=== PATIENT | male | born 1990 | race African-American/Black ===

== ENCOUNTER 2016-03-23 17:22 | Emergency (ER) | payer OTHER ==
[2016-03-23 17:30] VITALS: BP 133/86; PULSE 81; TEMP 99.1; BMI 23.3
[2016-03-23] MEDS ORDERED: SULFAMETHOXAZOLE/TRIMETHOPRIM 800MG/160MG D.S. TABLET PO ONE (18:10)
[2016-03-23] MEDS ORDERED: OXYCODONE/APAP 5/325MG COMBO TABLET PO ONE (18:10)
[2016-03-23] MEDS ORDERED: NAPROXEN 500 MG TABLET (FP) PO ONE (18:10)
[2016-03-23] MEDS ORDERED: CEPHALEXIN MONOHYDRATE 500 MG CAPSULE (UD) PO ONE (18:10)
[2016-03-23] MEDS ORDERED: NAPROXEN 500 MG TABLET (FP) ONE (18:16)
[2016-03-23] MEDS ORDERED: CEPHALEXIN MONOHYDRATE 250 MG CAPSULE (FP) ONE (18:18)
[2016-03-23] MEDS ORDERED: SULFAMETHOXAZOLE/TRIMETHOPRIM 800MG/160MG D.S. TABLET ONE (18:18)
[2016-03-23] MEDS ORDERED: OXYCODONE/APAP 5/325MG COMBO TABLET ONE (18:18)
--- NOTE | 2016-03-23 18:19 | PDOC ---
History of Present Illness - General History Source: Patient Exam Limitations: No Limitations <Hernandez Navarrete - Last Filed: 03/23/16 18:19> - General History Source: Patient - History of Present Illness Initial Comments: 03/23/16 18:22 The patient is a 26 year old male with no significant past medical history who presents to the Emergency Department with complaints of swelling and redness of left forearm s/p possible spider bite 2 days ago. He denies fever, chills, nausea, vomiting, diarrhea, headache, dizziness. <Yuliya Blevins - Last Filed: 03/23/16 18:29> - General Chief Complaint: Bite Stated Complaint: BITE Time Seen by Provider: 03/23/16 18:05 Past History - Past Medical History Asthma: Yes Suicide Attempt (Hx): No - Immunization History Td Vaccination: No TDAP Vaccination: No Immunization Up to Date: No - Psycho/Social/Smoking Cessation Hx Anxiety: No Suicidal Ideation: No Smoking Status: Yes Smoking History: Current every day smoker Years of Tobacco Use: 1 Have you smoked in the past 12 months: Yes Number of Cigarettes Smoked Daily: 20 Information on smoking cessation initiated: No 'Breaking Loose' booklet given: 01/01/15 Hx Alcohol Use: Yes (SOCIAL) Drug/Substance Use Hx: No Substance Use Type: None Hx Substance Use Treatment: No <Hernandez Navarrete - Last Filed: 03/23/16 18:19> <Yuliya Blevins - Last Filed: 03/23/16 18:29> - Past Medical History Allergies/Adverse Reactions: Allergies Allergy/AdvReac Type Severity Reaction Status Date / Time No Known Allergies Allergy Verified 03/23/16 17:30 Home Medications: Ambulatory Orders Cephalexin [Keflex] 500 mg PO Q6H #28 capsule 03/23/16 Naproxen [Naprosyn -] 500 mg PO BID PRN #20 tablet 03/23/16 Oxycodone HCl/Acetaminophen [Percocet 5-325 mg Tablet] 1 tab PO Q6H PRN #15 tablet MDD 4 03/23/16 Sulfamethoxazole/Trimethoprim [Bactrim Ds -] 1 tab PO BID #14 tablet 03/23/16 Review of Systems - Review of Systems Able to Perform ROS?: Yes Comments:: 03/23/16 18:23 GENERAL/CONSTITUTIONAL: No fever or chills. No weakness. HEAD, EYES, EARS, NOSE AND THROAT: No change in vision. No ear pain or discharge. No sore throat. CARDIOVASCULAR: No chest pain or shortness of breath. RESPIRATORY: No cough, wheezing, or hemoptysis. GASTROINTESTINAL: No nausea, vomiting, diarrhea or constipation. GENITOURINARY: No dysuria, frequency, or change in urination. MUSCULOSKELETAL:Yes: left forearm swelling, redness, pain No neck or back pain. SKIN: No rash NEUROLOGIC: No headache, vertigo, loss of consciousness, or change in strength/ sensation. ENDOCRINE: No increased thirst. No abnormal weight change. HEMATOLOGIC/LYMPHATIC: No anemia, easy bleeding, or history of blood clots. ALLERGIC/IMMUNOLOGIC: No hives or skin allergy. All Other Systems: Reviewed and Negative <Yuliya Blevins - Last Filed: 03/23/16 18:29> *Physical Exam - Vital Signs Last Vital Signs Temp Pulse Resp BP Pulse Ox 99.1 F 81 20 133/86 100 03/23/16 17:27 03/23/16 17:27 03/23/16 17:27 03/23/16 17:27 03/23/16 17:27 <Hernandez Navarrete - Last Filed: 03/23/16 18:19> - Vital Signs Last Vital Signs Temp Pulse Resp BP Pulse Ox 99.1 F 81 20 133/86 100 03/23/16 17:27 03/23/16 17:27 03/23/16 17:27 03/23/16 17:27 03/23/16 17:27 - Physical Exam Comments: 03/23/16 18:24 GENERAL: Awake, alert, and fully oriented, in no acute distress HEAD: No signs of trauma EYES: PERRLA, EOMI, sclera anicteric, conjunctiva clear ENT: Auricles normal inspection, hearing grossly normal, nares patent, oropharynx clear without exudates. Moist mucosa NECK: Normal ROM, supple, no lymphadenopathy, JVD, or masses LUNGS: Breath sounds equal, clear to auscultation bilaterally. No wheezes, and no crackles HEART: Regular rate and rhythm, normal S1 and S2, no murmurs, rubs or gallops ABDOMEN: Soft, nontender, normoactive bowel sounds. No guarding, no rebound. No masses EXTREMITIES:+8*4 cm erythema left distal forearm central 2*2 with induration and tender to palpation. Small bite site. No fluctuance appreciated. Full ROM of left wrist. No clubbing or cyanosis. No cords. NEUROLOGICAL: Cranial nerves II through XII grossly intact. Normal speech, normal gait SKIN: Warm, Dry, normal turgor, no rashes. <Yuliya Blevins - Last Filed: 03/23/16 18:29> ED Treatment Course - Medications Given in the ED: ED Medications Discontinued Medications Generic Name Dose Route Start Last Admin Trade Name Freq PRN Reason Stop Dose Admin Cephalexin HCl 500 mg 03/23/16 18:10 03/23/16 18:21 Keflex - PO 03/23/16 18:11 500 mg ONCE ONE Administration Naproxen 500 mg 03/23/16 18:10 03/23/16 18:21 Naprosyn - PO 03/23/16 18:11 500 mg ONCE ONE Administration Oxycodone/Acetaminophen 1 combo 03/23/16 18:10 03/23/16 18:21 Percocet 5/325 - PO 03/23/16 18:11 1 combo ONCE ONE Administration Trimethoprim/Sulfamethoxazole 1 each 03/23/16 18:10 03/23/16 18:21 Bactrim Ds - PO 03/23/16 18:11 1 each ONCE ONE Administration <Yuliya Blevins - Last Filed: 03/23/16 18:29> Medical Decision Making - Medical Decision Making 03/23/16 18:19 A portion of this note was documented by scribe services under my direction. I have reviewed the details of the note, within reason, and agree with the documentation with the following case summary and management plan written by me. Patient treated in the ED. Nursing notes are reviewed and incorporated into the medical decision-making. Vital signs reviewed. Peripheral IV access obtained by the nurse, laboratory studies are drawn and sent, reviewed and interpreted by myself. Vital Signs Temp Pulse Resp BP Pulse Ox 99.1 F 81 20 133/86 100 03/23/16 17:27 03/23/16 17:27 03/23/16 17:27 03/23/16 17:27 03/23/16 17:27 26-year-old male with no past medical history presents with cellulitis of the left distal forearm. Patient reports that he believes that he has been bitten by a spider 2 days ago started developing redness and erythema and induration. No fevers. There is no evidence of an abscess. Patient has full range of motion of the left wrist. I have no suspicion of joint involvement. We'll give Bactrim and Keflex. I instructed the patient to return to the ER in 2 days for wound check. Return precautions given including severe pain, high fevers, development of an abscess. Patient verbalizes understanding agrees with plan. I discussed the physical exam findings, ancillary test results and final diagnoses with the patient. I answered all of the patient's questions. The patient was satisfied with the care received and felt comfortable with the discharge plan and treatment plan. The patient will call their primary care physician within 24 hours to arrange follow-up and will return to the Emergency Department with any new, persistant or worsening symptoms. <Hernandez Navarrete - Last Filed: 03/23/16 18:19> *DC/Admit/Observation/Transfer - Discharge Dispostion Admit: No <Hernandez Navarrete - Last Filed: 03/23/16 18:19> - Attestations Scribe Attestion: 03/23/16 18:29 Documentation prepared by Yuliya Blevins, acting as medical van driver for Hernandez Navarrete MD. <Yuliya Blevins - Last Filed: 03/23/16 18:29> Diagnosis at time of Disposition: Cellulitis Qualifiers: Site of cellulitis: extremity Site of cellulitis of extremity: upper extremity Laterality: left Qualified Code(s): L03.114 - Cellulitis of left upper limb - Discharge Dispostion Disposition: HOME Condition at time of disposition: Stable - Prescriptions Prescriptions: Sulfamethoxazole/Trimethoprim [Bactrim Ds -] 1 tab PO BID #14 tablet Cephalexin [Keflex] 500 mg PO Q6H #28 capsule Naproxen [Naprosyn -] 500 mg PO BID PRN #20 tablet PRN Reason: Pain Oxycodone HCl/Acetaminophen [Percocet 5-325 mg Tablet] 1 tab PO Q6H PRN #15 tablet MDD 4 PRN Reason: Pain Level 6-10 - Patient Instructions Printed Discharge Instructions: DI for Cellulitis -- Adult Additional Instructions: At this time, there is NO abscess to drain at this time. Take keflex and bactrim as prescribed. It is very important that you complete its course. Take 500 mg naproxen every 12 hours as needed for pain. Take a tablet of percocet every 6 hours as needed for severe pain control. Please return to the ER in 2 days for wound/skin check.
== END 2016-03-23 18:32 | disposition home or self-care (01) ==
LOC: JERFT 17:22 → JER 17:22
DX: L03.114 Cellulitis of left upper limb (principal); S50.862A Insect bite (nonvenomous) of left forearm, initial encounter; W57.XXXA Bitten or stung by nonvenomous insect and other nonvenomous arthropods, initial encounter; Y93.89 Activity, other specified; Y92.89 Other specified places as the place of occurrence of the external cause
CPT/HCPCS: 99282-25

== ENCOUNTER 2016-03-25 20:51 | Emergency (ER) | payer OTHER ==
[2016-03-25 21:04] VITALS: BP 106/68; PULSE 99; TEMP 98.6; BMI 23.3
--- NOTE | 2016-03-25 21:28 | PDOC ---
History of Present Illness - General Chief Complaint: Revisit,Wound Recheck Stated Complaint: REVISIT Time Seen by Provider: 03/25/16 21:28 History Source: Patient Past History - Past Medical History Allergies/Adverse Reactions: Allergies Allergy/AdvReac Type Severity Reaction Status Date / Time No Known Allergies Allergy Verified 03/25/16 21:02 Home Medications: Ambulatory Orders Cephalexin [Keflex] 500 mg PO Q6H #28 capsule 03/23/16 Naproxen [Naprosyn -] 500 mg PO BID PRN #20 tablet 03/23/16 Oxycodone HCl/Acetaminophen [Percocet 5-325 mg Tablet] 1 tab PO Q6H PRN #15 tablet MDD 4 03/23/16 Sulfamethoxazole/Trimethoprim [Bactrim Ds -] 1 tab PO BID #14 tablet 03/23/16 Asthma: Yes Suicide Attempt (Hx): No - Immunization History Td Vaccination: No TDAP Vaccination: No Immunization Up to Date: No - Psycho/Social/Smoking Cessation Hx Anxiety: No Suicidal Ideation: No Smoking Status: Yes Smoking History: Current every day smoker Years of Tobacco Use: 1 Have you smoked in the past 12 months: Yes Number of Cigarettes Smoked Daily: 20 Information on smoking cessation initiated: Yes 'Breaking Loose' booklet given: 03/25/16 Hx Alcohol Use: No Drug/Substance Use Hx: No Substance Use Type: None Hx Substance Use Treatment: No *Physical Exam - Vital Signs Last Vital Signs Temp Pulse Resp BP Pulse Ox 98.6 F 99 H 18 106/68 99 03/25/16 21:02 03/25/16 21:02 03/25/16 21:02 03/25/16 21:02 03/25/16 21:02
[2016-03-25] MEDS ORDERED: OXYCODONE/APAP 5/325MG COMBO TABLET PO ONE (22:13)
[2016-03-25] MEDS ORDERED: LIDOCAINE HCL 2% (50ML VIAL) INF ONE (22:13)
[2016-03-25] MEDS ORDERED: IBUPROFEN 400 MG TABLET (FP) PO ONE ×2 (22:13→22:33)
[2016-03-25] MEDS ORDERED: OXYCODONE/APAP 5/325MG COMBO TABLET ONE (22:33)
[2016-03-25] MEDS ORDERED: LIDOCAINE HCL 2% (20ML MULTI-DOSE VIAL) NR ONE (22:33)
--- NOTE | 2016-03-25 23:07 | PDOC ---
Suture Removal/Wound Check HPI - History of Present Illness Chief Complaint: Revisit,Wound Recheck Stated Complaint: REVISIT Time Seen by Provider: 03/25/16 21:28 History Source: Yes: Patient Exam Limitations: Yes: No Limitations Treated at: [facility] Date of Last ED visit: 03/23/16 - Previous ED Treatment Type of procedure performed on last visit: Yes: Other (Given Abx for abscess of left wrist.) Tetanus Immunization: Yes: Up to Date Antibiotics Prescribed: Yes (Keflex and Bactrim) - Onset of Previous Treatment Timing/Duration/Severity of Onset: reports: Getting worse Comment:: 03/25/16 23:03 26yo Male patient presents to ED c/o left wrist abscess getting worse. Patient states he was evaluated in this emergency department and prescribed abx and was instructed to return if symptoms worsened. Patient now presents with large abscess to left wrist. Denies fever, cough, or any other complaints at this time. Past History - Travel Traveled outside of the country in the last 30 days: No Close contact w/someone who was outside of country & ill: No - Past Medical History Allergies/Adverse Reactions: Allergies No Known Allergies Allergy (Verified 03/25/16 21:02) Home Medications: Ambulatory Orders Cephalexin [Keflex] 500 mg PO Q6H #28 capsule 03/23/16 Naproxen [Naprosyn -] 500 mg PO BID PRN #20 tablet 03/23/16 Oxycodone HCl/Acetaminophen [Percocet 5-325 mg Tablet] 1 tab PO Q6H PRN #15 tablet MDD 4 03/23/16 Sulfamethoxazole/Trimethoprim [Bactrim DS -] 1 tab PO BID #14 tablet 03/23/16 Hydrocodone/Acetaminophen [Vicodin 5-300 mg Tablet] 1 each PO Q8H PRN #12 tablet MDD 4 tabs 03/25/16 - Immunization History Immunizations Up to Date: No - Social History Smoking History: Yes Smoking Status: Current every day smoker Years of Tobacco Use: 1 Number of Ciarettes Per Day: 20 Alcohol Use: none Drug Use: none Suture Removal/Wound Check PE - Physical Exam Laceration/Wound Check Symptoms: reports: None, Pain, Worsening Comments: 03/25/16 23:05 Worsening symptoms while on ABX. Pain Intensity: 10 Current Severity Level: Severe Maximum Severity Level: Severe Pain Localization: Diffuse (Traveling up elbow.) Location of Laceration/Wound: left: Wrist (Large fluctuant erythema abscess. Non -draining) *Review of Systems - Review of Systems Constitutional: No: Chills, Fever Respiratory: No: Shortness of Breath Cardiac (ROS): No: Chest Pain, Edema ABD/GI: No: Diarrhea, Nausea, Vomiting Musculoskeletal: Yes: Joint Pain Integumentary: Yes: Erythema, Other (Abscess) Neurological: No: Symptoms reported, See HPI, Headache, Numbness, Paresthesia, Pre-Existing Deficit, Seizure, Tingling, Tremors, Weakness, Unsteady Gait, Ataxia, Dizziness, Other All Other Systems: Reviewed and Negative Procedures - Incision and Drainage I&D Site: Left: Other (Wrist.) Betadine cleansed: Yes Anesthesia: 2% Lidocaine Volume(ml): 10 Attempts: 1 Iodinated Packin/2 in Plain Packing: No (Medicated) Complications: none Dressing: Yes (Sterile gauze) Progress: 03/25/16 23:09 Patient tolerated procedure well. ED Treatment Course - Medications Given in the ED: ED Medications Discontinued Medications Generic Name Dose Route Start Last Admin Trade Name Freq PRN Reason Stop Dose Admin Ibuprofen 800 mg 03/25/16 22:13 03/25/16 22:35 Motrin - PO 03/25/16 22:14 800 mg ONCE ONE Administration Oxycodone/Acetaminophen 2 combo 03/25/16 22:13 03/25/16 22:35 Percocet 5/325 - PO 03/25/16 22:14 2 combo ONCE ONE Administration *DC/Admit/Observation/Transfer Diagnosis at time of Disposition: Skin abscess Qualifiers: Site of cutaneous abscess: extremity Site of cutaneous abscess of extremity: upper extremity Laterality: left Qualified Code(s): L02.414 - Cutaneous abscess of left upper limb - Discharge Dispostion Disposition: HOME Condition at time of disposition: Good Admit: No - Prescriptions Prescriptions: Hydrocodone/Acetaminophen [Vicodin 5-300 mg Tablet] 1 each PO Q8H PRN #12 tablet MDD 4 tabs PRN Reason: Severe Pain - Patient Instructions Printed Discharge Instructions: How to Care for a Surgical Wound, DI for Wound Infection Additional Instructions: FOLLOW UP WITH THIS ED IN 2 DAYS FOR FURTHER EVALUATION. DO NOT REMOVE PACKING. DRESSING CHANGES DAILY AND NEEDED. IF PACKING IS REMOVED BY ACCIDENT DO NOT WORRY, JUST RETURN DISCUSSED. TAKE MEDICATIONS PRESCRIBED. VICODIN NEEDED FOR SEVERE PAIN. YOU MAY APPLY COLD COMPRESS EVERY 4 HOURS WHILE AWAKE FOR 10-15 MINS ON AND OFF NEEDED. DO NOT DRIVE, DRINK ALCOHOL, OR OPERATE HEAVY MACHINERY WHILE TAKING VICODIN. Print Language: HAITIAN
== END 2016-03-25 23:23 | disposition home or self-care (01) ==
LOC: JER 20:51
PROC: 0H9EXZZ Drainage of Left Lower Arm Skin, External Approach (ICD-10-PCS; principal; 2016-03-25)
DX: L02.414 Cutaneous abscess of left upper limb (principal); F17.210 Nicotine dependence, cigarettes, uncomplicated
CPT/HCPCS: 10060; 99281-25

== ENCOUNTER 2016-03-27 20:06 | Emergency (ER) | payer OTHER ==
[2016-03-27 20:18] VITALS: BP 153/72; PULSE 99; TEMP 98.9; BMI 23.3
--- NOTE | 2016-03-27 22:25 | PDOC ---
Suture Removal/Wound Check HPI - History of Present Illness Chief Complaint: Revisit,Wound Recheck Stated Complaint: REVISIT Time Seen by Provider: 03/27/16 21:57 History Source: Yes: Patient Exam Limitations: Yes: No Limitations Treated at: [facility] [place] Date of Last ED visit: 03/23/16 - Previous ED Treatment Type of procedure performed on last visit: Yes: Other (Wound assessment) Tetanus Immunization: Yes: Up to Date Antibiotics Prescribed: Yes - Onset of Previous Treatment Timing/Duration/Severity of Onset: reports: Other comment (Read previous visit.) Comment:: 03/27/16 22:21 26yo Male patient presents to ED for wound check/re-evaluation. Patient states wick from previous visit fell out and that it was full of pus. Patient denies fever. Report pain at 6/10. No new complaints at this time. Past History - Travel Traveled outside of the country in the last 30 days: No Close contact w/someone who was outside of country & ill: No - Past Medical History Allergies/Adverse Reactions: Allergies No Known Allergies Allergy (Verified 03/27/16 20:15) Home Medications: Ambulatory Orders Cephalexin [Keflex] 500 mg PO Q6H #28 capsule 03/23/16 Sulfamethoxazole/Trimethoprim [Bactrim DS -] 1 tab PO BID #14 tablet 03/23/16 Tramadol HCl 50 mg PO Q6H PRN #12 tablet MDD 4 tabs 03/27/16 - Immunization History Immunizations Up to Date: No - Social History Smoking History: Yes Smoking Status: Current every day smoker Years of Tobacco Use: 1 Number of Ciarettes Per Day: 20 Alcohol Use: none Drug Use: none Suture Removal/Wound Check PE - Physical Exam Laceration/Wound Check Symptoms: reports: Redness, Improved, Other Comment ( Small amount of drainage noted on gauze that was applied to left wrist.) Current Severity Level: Moderate Maximum Severity Level: None Location of Laceration/Wound: left: Wrist *Review of Systems - Review of Systems Able to Perform ROS?: Yes Constitutional: No: Chills, Fever Respiratory: No: Shortness of Breath Cardiac (ROS): No: Chest Pain ABD/GI: No: Diarrhea, Nausea, Vomiting : No: Dysuria, Hematuria Integumentary: Yes: Erythema, Other (Healing wound that was originally and abscess that has improved.) All Other Systems: Reviewed and Negative Medical Decision Making - Medical Decision Making 03/27/16 22:25 No further treatment done. Assessment of wound: small amount of yellowish drainage and mild erythema noted. Site has improved since previous visit 2 days ago. Mild tenderness on examination. Patient report he still has abx left to complete. *DC/Admit/Observation/Transfer Diagnosis at time of Disposition: Skin abscess Qualifiers: Site of cutaneous abscess: extremity Site of cutaneous abscess of extremity: upper extremity Laterality: left Qualified Code(s): L02.414 - Cutaneous abscess of left upper limb - Discharge Dispostion Disposition: HOME Condition at time of disposition: Good Admit: No - Prescriptions Prescriptions: Tramadol HCl 50 mg PO Q6H PRN #12 tablet MDD 4 tabs PRN Reason: Severe Pain - Patient Instructions Printed Discharge Instructions: DI for Wound Infection Additional Instructions: CONTINUE CURRENT ANTIBIOTIC THERAPY. TAKE MEDICATIONS PRESCRIBED. DO NOT DRIVE, DRINK ALCOHOL, OR OPERATE HEAVY MACHINERY WHILE TAKING TRAMADOL. YOU MAY ALSO USE OVER THE COUNTER MOTRIN OR TYLENOL WITH TRAMADOL. FOLLOW UP WITH YOUR PRIMARY CARE PROVIDER. DRESSING CHANGES DAILY AND NEEDED. Print Language: CROATIAN
== END 2016-03-27 22:39 | disposition home or self-care (01) ==
LOC: JER 20:06 → JERFT 20:06 → JER 22:39
DX: L02.414 Cutaneous abscess of left upper limb (principal)
CPT/HCPCS: 99281-25

== ENCOUNTER 2016-08-14 23:16 | Emergency (ER) | payer OTHER ==
[2016-08-14 23:30] VITALS: BP 150/91; PULSE 98; TEMP 98.1; BMI 22.4
--- NOTE | 2016-08-15 00:37 | PDOC ---
History of Present Illness - General Chief Complaint: Penile Drainage Stated Complaint: EVALUATION Time Seen by Provider: 08/15/16 00:12 History Source: Patient Exam Limitations: No Limitations - History of Present Illness Initial Comments: 08/15/16 01:47 Patient is a 26-year-old male who presents to the ER complaining of atraumatic right testicular pain and whitish penile discharge for the past several days after having unprotected intercourse. Pain is constant, is exacerbated with weightbearing, without fever or chills. Patient denies dysuria/frequency/ urgency. Patient denies previous history of gonorrhea/chlamydia/syphilis/HIV. Patient does not know if his sexual partner is experiencing any symptoms at this time. REVIEW OF SYSTEMS CONSTITUTIONAL: No fever, no chills, no fatigue EYES: No visual changes ENT: No ear pain, no sore throat CARDIOVASCULAR: No chest pain, no palpitations RESPIRATORY: No cough, no SOB GI: No abdominal pain, no nausea, no vomiting, no constipation, no diarrhea GENITOURINARY: No dysuria, no frequency, no hematuria; + penile discharge, right testicular pain, MUSKULOSKELETAL: No backpain, no joint pain, no myalgias SKIN: No rash NEURO: No headache EXAMINATION CONSTITUTIONAL: Well-appearing; well-nourished; in no apparent distress HEAD: Normocephalic; atraumatic EYES: PERRL; EOM intact ENMT: External appears normal; normal oropharynx RESP: Normal chest excursion with respiration; breath sounds clear and equal bilaterally; no wheezes, rhonchi, or rales ABD: Soft, non-distended; non-tender; no palpable organomegaly, no palpable hernias : + Small amount of discharge at penile meatus; right testicle is mildly edematous and mildly tender to palpation; both testicles are normal lie; EXT: Normal ROM in all four extremities; non-tender to palpation; distal pulses intact SKIN: Warm, dry, no rash NEURO: No focal neurological deficiencies. Past History - Past Medical History Allergies/Adverse Reactions: Allergies Allergy/AdvReac Type Severity Reaction Status Date / Time No Known Allergies Allergy Verified 08/14/16 23:30 Home Medications: Ambulatory Orders Cephalexin [Keflex] 500 mg PO Q6H #28 capsule 03/23/16 Sulfamethoxazole/Trimethoprim [Bactrim DS -] 1 tab PO BID #14 tablet 03/23/16 Tramadol HCl 50 mg PO Q6H PRN #12 tablet MDD 4 tabs 03/27/16 Asthma: Yes Suicide Attempt (Hx): No - Immunization History Td Vaccination: No TDAP Vaccination: No Immunization Up to Date: No - Psycho/Social/Smoking Cessation Hx Anxiety: No Suicidal Ideation: No Smoking Status: Yes Smoking History: Current every day smoker Years of Tobacco Use: 1 Have you smoked in the past 12 months: Yes Number of Cigarettes Smoked Daily: 20 Information on smoking cessation initiated: No 'Breaking Loose' booklet given: 03/25/16 Hx Alcohol Use: No Drug/Substance Use Hx: No Substance Use Type: None Hx Substance Use Treatment: No *Physical Exam - Vital Signs Last Vital Signs Temp Pulse Resp BP Pulse Ox 98.1 F 98 H 18 150/91 100 08/14/16 23:27 08/14/16 23:27 08/14/16 23:27 08/14/16 23:27 08/14/16 23:27 Medical Decision Making - Medical Decision Making 08/15/16 01:50 Patient is a healthy 26-year-old male who presents with signs and symptoms of acute urethritis and likely epididymitis. I suspect chlamydia at this time. Will obtain Chlamydia/gonorrhea GenProbe. We'll test patient for HIV and RPR. We 'll administer ceftriaxone and Zithromax. Likely discharge. *DC/Admit/Observation/Transfer Diagnosis at time of Disposition: Urethritis Hydrocele Qualifiers: Hydrocele type: unspecified Qualified Code(s): N43.3 - Hydrocele, unspecified - Discharge Dispostion Disposition: HOME Condition at time of disposition: Stable - Referrals Referrals: Alexandra Reddy MD [Primary Care Provider] - - Patient Instructions Printed Discharge Instructions: DI for Urethritis, DI for Hydrocele-Adult
[2016-08-15] MEDS ORDERED: AZITHROMYCIN 1 GM PACKET PO ONE (00:42)
[2016-08-15] MEDS ORDERED: AZITHROMYCIN 1 GM PACKET ONE (01:14)
[2016-08-15 02:41] LABS: HIV 1 & 2 AB NEGATIVE; HIV 1 AGp24 NEGATIVE
== END 2016-08-15 03:11 | disposition home or self-care (01) ==
LOC: JER 23:16 → SUPCPDRO 23:16 → JER 08-15 03:11
DX: N34.2 Other urethritis (principal); N43.2 Other hydrocele
CPT/HCPCS: 36415; 76870-TC; 86593; 87389; 87491; 87591; 99281-25

== ENCOUNTER 2017-06-11 12:50 | Observation (INO) | payer OTHER ==
[2017-06-11 13:08] VITALS: BMI 23.3
[2017-06-11] MEDS ORDERED: morphine CARPU-JECT 4 MG/1 ML DISP.SYRIN IVPUSH ONE (14:02)
[2017-06-11] MEDS ORDERED: SODIUM CHLORIDE 1,000 ML IV STA (14:02)
[2017-06-11] MEDS ORDERED: MORPHINE SULFATE 10 MG/1 ML *VIAL ONE (14:05)
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
[2017-06-11 14:18] LABS: BASO % 0.3 % (0-2.0); EOS % 0.3 % (0-4.5); HEMATOCRIT 46.3 % (35.4-49); HEMOGLOBIN 15.3 GM/dL (11.7-16.9); LYMPH % 13.2 % (8-40); MCH 31.6 pg (25.7-33.7); MEAN CELL VOLUME 95.8 fl (80-96); MEAN PLT VOLUME 10.2 fl (7.5-11.1); MONO % 6.3 % (3.8-10.2); NEUT % 79.9 % (42.8-82.8); PLATELET COUNT 198 K/MM3 (134-434); RBC 4.83 M/mm3 (4.00-5.60); RDW 14.9 % (11.9-15.9); WHITE BLOOD COUNT 15.1 K/mm3 (4.0-10.0)
[2017-06-11 15:02] LABS: ALBUMIN 4.6 g/dl (3.4-5.0); ANION GAP 16 (8-16); BILIRUBIN,TOTAL 0.9 mg/dL (0.2-1.0); BLOOD UREA NITROGEN 12 mg/dL (7-18); CALCIUM 9.2 mg/dL (8.5-10.1); CHLORIDE 105 mmol/L (98-107); CO2 21 mmol/L (21-32); CREATININE 0.9 mg/dL (0.7-1.3); GLUCOSE,RANDOM 56 mg/dL (74-106); LIPASE 114 U/L (73-393); POTASSIUM 4.1 mmol/L (3.5-5.1); SGOT/AST 64 U/L (15-37); SGPT/ALT 29 U/L (12-78); SODIUM 142 mmol/L (136-145); TOT PROT 8.2 g/dl (6.4-8.2)
[2017-06-11 15:08] LABS: INR 0.96 (0.82-1.09); PROTHROMBIN TIME (PATIENT) 10.9 SEC (9.98-11.88)
[2017-06-11 15:14] LABS: ALK PHOS 80 U/L (45-117)
[2017-06-11] MEDS ORDERED: ACETAMINOPHEN 1000 MG/100 ML VIAL (NON FORMULARY) IVPB ONE ×2 (15:29→18:00)
[2017-06-11] MEDS ORDERED: SODIUM CHLORIDE 1,000 ML IV SCH (15:30)
[2017-06-11] MEDS ORDERED: ACETAMINOPHEN INJECTION 100 ML IVPB ONE (15:40)
[2017-06-11] MEDS ORDERED: HYDROmorphone HCL CARPU-JECT 1 MG/1 ML DISP.SYRIN IVPUSH ONE (16:31)
[2017-06-11] MEDS ORDERED: ACETAMINOPHEN 325 MG TABLET (FP) PO PRN (17:08)
[2017-06-11] MEDS: SODIUM CHLORIDE 1,000 ML IV SCH (17:16)
[2017-06-11] MEDS ORDERED: oxyCODONE HCL 5 MG TABLET PO PRN (17:20)
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
[2017-06-11] MEDS: oxyCODONE HCL 5 MG TABLET PO PRN (20:36)
[2017-06-11 22:57] LABS: URINE APPEARANCE CLEAR; URINE BILIRUBIN NEGATIVE (NEGATIVE); URINE BLOOD NEGATIVE (NEGATIVE); URINE COLOR LTYELLOW; URINE GLUCOSE (UA) NEGATIVE (NEGATIVE); URINE KETONE TRACE (NEGATIVE); URINE LEUK ESTERASE NEGATIVE (NEGATIVE); URINE NITRITE NEGATIVE (NEGATIVE); URINE PROTEIN NEGATIVE (NEGATIVE); URINE UROBILINOGEN NEGATIVE mg/dL (0.2-1.0)
[2017-06-12] MEDS: oxyCODONE HCL 5 MG TABLET PO PRN ×5 (00:29→20:04)
[2017-06-12] MEDS: ACETAMINOPHEN 325 MG TABLET (FP) PO PRN ×5 (00:30→20:07)
[2017-06-12] MEDS ORDERED: morphine CARPU-JECT 2 MG/1 ML DISP.SYRIN IVPUSH ONE (07:45)
[2017-06-12] MEDS: morphine SULFATE 4 MG/ML VIAL IVPUSH PRN ×2 (07:49→14:00)
[2017-06-12 08:51] LABS: CHLORIDE 105 mmol/L (98-107); POTASSIUM 4.2 mmol/L (3.5-5.1); SODIUM 138 mmol/L (136-145)
[2017-06-12 08:56] LABS: ANION GAP 10 (8-16); BLOOD UREA NITROGEN 10 mg/dL (7-18); CALCIUM 7.9 mg/dL (8.5-10.1); CO2 23 mmol/L (21-32); CREATININE 0.7 mg/dL (0.7-1.3); GLUCOSE,RANDOM 79 mg/dL (74-106)
--- NOTE | 2017-06-12 09:56 | EKG ---
Test Reason : Blood Pressure : / mmHG Vent. Rate : 083 BPM Atrial Rate : 083 BPM P-R Int : 154 ms QRS Dur : 100 ms QT Int : 372 ms P-R-T Axes : 066 067 055 degrees QTc Int : 437 ms NORMAL SINUS RHYTHM NORMAL ECG WHEN COMPARED WITH ECG OF 22-MAY-2013 09:09, NO SIGNIFICANT CHANGE WAS FOUND Confirmed by JESSIKA MABRY MD ([id number]) on 06/12/2017 9:56:30 AM Referred By: Confirmed By:JESSIKA MABRY MD
[2017-06-12] MEDS: SODIUM CHLORIDE 1,000 ML IV SCH ×2 (11:50→20:30)
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
[2017-06-12 16:52] LABS: BASO % 0.5 % (0-2.0); EOS % 2.6 % (0-4.5); HEMATOCRIT 38.1 % (35.4-49); LYMPH % 23.5 % (8-40); MCH 32.7 pg (25.7-33.7); MCHC 34.1 g/dl (32.0-35.9); MEAN CELL VOLUME 96.1 fl (80-96); MEAN PLT VOLUME 10.4 fl (7.5-11.1); NEUT % 65.4 % (42.8-82.8); PLATELET COUNT 166 K/MM3 (134-434); RBC 3.97 M/mm3 (4.00-5.60); RDW 14.6 % (11.9-15.9); WHITE BLOOD COUNT 8.3 K/mm3 (4.0-10.0)
[2017-06-13] MEDS: oxyCODONE HCL 5 MG TABLET PO PRN ×4 (00:12→12:39)
[2017-06-13] MEDS: ACETAMINOPHEN 325 MG TABLET (FP) PO PRN ×3 (00:13→08:32)
[2017-06-13] MEDS: SODIUM CHLORIDE 1,000 ML IV SCH (04:41)
[2017-06-13 08:43] LABS: ANION GAP 4 (8-16); BLOOD UREA NITROGEN 6 mg/dL (7-18); CALCIUM 8.3 mg/dL (8.5-10.1); CHLORIDE 105 mmol/L (98-107); CO2 30 mmol/L (21-32); CREATININE 0.7 mg/dL (0.7-1.3); GLUCOSE,RANDOM 82 mg/dL (74-106); POTASSIUM 4.3 mmol/L (3.5-5.1); SODIUM 139 mmol/L (136-145)
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
[2017-06-13 19:16] VITALS: BP 120/70; PULSE 70; TEMP 98
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
== END 2017-06-13 13:30 | disposition home or self-care (01) ==
LOC: JERFT 12:50 → JER 12:50 → INTOOBSV 16:27 → JERBED 16:27 → UNDOADMOB 16:27 → J6S 17:08 → JERBED 17:55 → J6S 17:55
PROVIDERS: ADMIT Internal Medicine; ATTEND Internal Medicine
CPT/HCPCS: 36415; 70450-TC; 71045-TC-FY; 71250-TC; 72125-TC; 74176-TC; 80048; 80053; 81003; 82550; 82553; 83690; 84484; 85025; 85610; 86850; 86900; 86901; 93005; 93010; 94010; 97116-GP; 97161-GP; 99285-25; G0378; J0131; J7030

== ENCOUNTER 2020-09-19 14:58 | Inpatient (IN) | payer OTHER ==
[2020-09-19 16:57] VITALS: BMI 23.3
[2020-09-19] MEDS ORDERED: IBUPROFEN 400 MG TABLET (FP) PO PRN (18:07)
[2020-09-19] MEDS ORDERED: MAGNESIUM HYDROX 2400MG/30ML ORAL SUSPENSION 30 ML CUP PO PRN (18:07)
[2020-09-19] MEDS ORDERED: NICOTINE POLACRILEX 2 MG GUM BUC PRN (18:07)
[2020-09-19] MEDS ORDERED: MAGNESIUM CITRATE 300 ML BOTTLE PO PRN (18:07)
[2020-09-19] MEDS ORDERED: MENTHOL/PHENOL 1 EACH UD MM PRN (18:07)
[2020-09-19] MEDS ORDERED: MAG HYDROX/AL HYDROX/SIMETH 30 ML UNIT-DOSE CUP PO PRN (18:07)
[2020-09-19] MEDS ORDERED: hydrOXYzine PAMOATE 25 MG CAPSULE (FP) PO PRN (18:07)
[2020-09-19] MEDS ORDERED: BISMUTH SUBSALICYLATE 524 MG/30 ML PO PRN (18:07)
[2020-09-19] MEDS ORDERED: ACETAMINOPHEN 325 MG TABLET (FP) PO PRN (18:07)
[2020-09-19] MEDS ORDERED: METHADONE HCL 10 MG TABLET (FOR DETOX USE ONLY) PO ONE (18:08)
[2020-09-19] MEDS ORDERED: cloNIDine HCL 0.1 MG TABLET PO PRN (18:08)
[2020-09-19] MEDS: ACETAMINOPHEN 325 MG TABLET (FP) PO PRN (19:51)
[2020-09-19] MEDS: MELATONIN 5 MG TABLETS PO SCH (22:44)
[2020-09-19] MEDS: THIAMINE HCL 100 MG TABLET (FP) PO SCH (22:44)
[2020-09-19] MEDS: BACITRACIN 0.9 GM PACKET TP SCH (22:45)
[2020-09-20] MEDS ORDERED: METHADONE HCL 10 MG TABLET (FOR DETOX USE ONLY) ONE (09:11)
[2020-09-20] MEDS ORDERED: METHADONE HCL 5 MG TABLET (FOR DETOX USE ONLY) ONE (09:12)
[2020-09-20] MEDS ORDERED: METHADONE (DETOX) 20 MG, METHADONE (DETOX) 5 MG PO ONE (10:00)
[2020-09-20] MEDS: BACITRACIN 0.9 GM PACKET TP SCH ×2 (10:32→21:41)
[2020-09-20] MEDS: ACETAMINOPHEN 325 MG TABLET (FP) PO PRN (10:33)
[2020-09-20 10:51] LABS: HEMATOCRIT 38.2 % (35.4-49); HEMOGLOBIN 12.8 GM/dL (11.7-16.9); MCHC 33.5 g/dl (32.0-35.9); MEAN CELL VOLUME 95.6 fl (80-96); MEAN PLT VOLUME 9.9 fl (7.5-11.1); PLATELET COUNT 217 10^3/uL (134-434); WHITE BLOOD COUNT 6.3 K/mm3 (4.0-10.0)
[2020-09-20 10:58] LABS: ALBUMIN 3.1 g/dl (3.4-5.0); CALCIUM 8.4 mg/dL (8.5-10.1)
[2020-09-20 10:59] LABS: BLOOD UREA NITROGEN 20.6 mg/dL (7-18)
[2020-09-20 11:02] LABS: CREATININE 0.7 mg/dL (0.55-1.3)
[2020-09-20 11:03] LABS: BILIRUBIN,TOTAL 0.8 mg/dL (0.2-1); TOT PROT 6.1 g/dl (6.4-8.2)
[2020-09-20] MEDS: PRENATAL VITAMINS W/ FOLIC ACID TABLET (FP) PO SCH (11:10)
[2020-09-20] MEDS: THIAMINE HCL 100 MG TABLET (FP) PO SCH (21:38)
[2020-09-20] MEDS: MELATONIN 5 MG TABLETS PO SCH (21:38)
[2020-09-21] MEDS ORDERED: METHADONE HCL 10 MG TABLET (FOR DETOX USE ONLY) PO ONE (10:00)
[2020-09-21] MEDS: PRENATAL VITAMINS W/ FOLIC ACID TABLET (FP) PO SCH (10:16)
[2020-09-21] MEDS: diazePAM 5 MG TABLET PO PRN ×3 (10:16→22:31)
[2020-09-21] MEDS: METHOCARBAMOL 500 MG TABLET PO PRN ×2 (10:16→16:37)
[2020-09-21] MEDS: BACITRACIN 0.9 GM PACKET TP SCH ×2 (10:18→22:34)
[2020-09-21] MEDS ORDERED: MELATONIN 5 MG TABLETS PO SCH (10:50)
[2020-09-21] MEDS: ACETAMINOPHEN 325 MG TABLET (FP) PO PRN (18:03)
[2020-09-21] MEDS ORDERED: MIRTAZAPINE 15 MG TABLET (FP) PO SCH (22:00)
[2020-09-21] MEDS: THIAMINE HCL 100 MG TABLET (FP) PO SCH (22:31)
[2020-09-22 09:32] VITALS: TEMP 96.8
[2020-09-22] MEDS ORDERED: METHADONE (DETOX) 10 MG, METHADONE (DETOX) 5 MG PO ONE (10:00)
[2020-09-22] MEDS ORDERED: METHADONE HCL 10 MG TABLET (FOR DETOX USE ONLY) ONE (10:00)
[2020-09-22] MEDS ORDERED: METHADONE HCL 5 MG TABLET (FOR DETOX USE ONLY) ONE (10:00)
[2020-09-22] MEDS: METHOCARBAMOL 500 MG TABLET PO PRN (10:19)
[2020-09-22] MEDS: BACITRACIN 0.9 GM PACKET TP SCH (10:19)
[2020-09-22] MEDS: diazePAM 5 MG TABLET PO PRN (10:19)
[2020-09-22] MEDS: PRENATAL VITAMINS W/ FOLIC ACID TABLET (FP) PO SCH (10:19)
[2020-09-22] MEDS: ACETAMINOPHEN 325 MG TABLET (FP) PO PRN (10:20)
[2020-09-22] MEDS ORDERED: NICOTINE 21 MG/24 HOURS TOPICAL PATCH TD SCH (10:30)
[2020-09-22 14:09] VITALS: BP 116/64; PULSE 84
[2020-09-23] MEDS ORDERED: METHADONE HCL 10 MG TABLET (FOR DETOX USE ONLY) PO ONE (10:00)
[2020-09-24] MEDS ORDERED: METHADONE HCL 5 MG TABLET (FOR DETOX USE ONLY) PO ONE (06:00)
== END 2020-09-22 15:35 | disposition left against medical advice (07) | DRG 770 ==
LOC: YASAS 14:58 → Y3N 18:22
PROVIDERS: ADMIT Allergy & Immunology; ATTEND Allergy & Immunology
PROC: HZ2ZZZZ Detoxification Services for Substance Abuse Treatment (ICD-10-PCS; principal; 2020-09-19)
DX: F11.23 Opioid dependence with withdrawal (principal); F14.20 Cocaine dependence, uncomplicated; F17.210 Nicotine dependence, cigarettes, uncomplicated; F19.24 Other psychoactive substance dependence with psychoactive substance-induced mood disorder; G47.00 Insomnia, unspecified
CPT/HCPCS: 36415; 80053; 85027; 86780; 93005; 93010; C9803; J0735; U0003; U0005

== ENCOUNTER 2020-10-18 13:06 | Inpatient (IN) | payer OTHER ==
[2020-10-18 13:40] VITALS: BMI 21.2
[2020-10-18] MEDS ORDERED: NICOTINE 10 MG CARTRIDGE (INHALER) IH PRN (14:23)
[2020-10-18] MEDS ORDERED: IBUPROFEN 400 MG TABLET (FP) PO PRN (14:23)
[2020-10-18] MEDS ORDERED: MAG HYDROX/AL HYDROX/SIMETH 30 ML UNIT-DOSE CUP PO PRN (14:23)
[2020-10-18] MEDS ORDERED: MAGNESIUM HYDROX 2400MG/30ML ORAL SUSPENSION 30 ML CUP PO PRN (14:23)
[2020-10-18] MEDS ORDERED: MENTHOL/PHENOL 1 EACH UD MM PRN (14:23)
[2020-10-18] MEDS ORDERED: methaDONE HCL 10 MG TABLET (FOR DETOX USE ONLY) PO ONE (14:23)
[2020-10-18] MEDS ORDERED: ACETAMINOPHEN 325 MG TABLET (FP) PO PRN ×2 (14:23)
[2020-10-18] MEDS ORDERED: ONDANSETRON *ODT* 4 MG TABLET SL PRN (14:23)
[2020-10-18] MEDS ORDERED: MAGNESIUM CITRATE 300 ML BOTTLE PO PRN (14:23)
[2020-10-18] MEDS ORDERED: cloNIDine HCL 0.1 MG TABLET PO PRN (14:23)
[2020-10-18] MEDS ORDERED: BISMUTH SUBSALICYLATE 524 MG/30 ML PO PRN (14:23)
[2020-10-18] MEDS: PRENATAL VITAMINS W/ FOLIC ACID TABLET (FP) PO SCH (15:32)
[2020-10-18] MEDS: NICOTINE 21 MG/24 HOURS TOPICAL PATCH TD SCH (15:32)
[2020-10-18] MEDS: LORazepam 1 MG TABLET PO PRN (15:33)
[2020-10-18] MEDS: METHOCARBAMOL 500 MG TABLET PO PRN (17:54)
[2020-10-18] MEDS: LORazepam 2 MG TABLET PO SCH ×2 (18:15→22:47)
[2020-10-18] MEDS: hydrOXYzine PAMOATE 25 MG CAPSULE (FP) PO SCH ×2 (18:16→22:47)
[2020-10-18] MEDS: MELATONIN 5 MG TABLETS PO SCH (22:47)
[2020-10-18] MEDS: THIAMINE HCL 100 MG TABLET (FP) PO SCH (22:47)
[2020-10-19] MEDS: LORazepam 2 MG TABLET PO SCH ×4 (06:10→22:32)
[2020-10-19] MEDS: hydrOXYzine PAMOATE 25 MG CAPSULE (FP) PO SCH ×2 (06:10→11:05)
[2020-10-19] MEDS ORDERED: methaDONE HCL 10 MG TABLET (FOR DETOX USE ONLY) ONE (09:06)
[2020-10-19 10:09] LABS: HEMATOCRIT 37.7 % (35.4-49); HEMOGLOBIN 12.9 GM/dL (11.7-16.9); MCH 31.8 pg (25.7-33.7); MCHC 34.2 g/dl (32.0-35.9); MEAN CELL VOLUME 93.1 fl (80-96); MEAN PLT VOLUME 10.1 fl (7.5-11.1); PLATELET COUNT 221 10^3/uL (134-434); RBC 4.05 M/mm3 (4.00-5.60); RDW 13.7 % (11.9-15.9); WHITE BLOOD COUNT 6.2 K/mm3 (4.0-10.0)
[2020-10-19 10:29] LABS: BILIRUBIN,TOTAL 0.5 mg/dL (0.2-1); CALCIUM 8.5 mg/dL (8.5-10.1)
[2020-10-19 10:30] LABS: ALBUMIN 3.1 g/dl (3.4-5.0); BLOOD UREA NITROGEN 14.4 mg/dL (7-18); TOT PROT 6.4 g/dl (6.4-8.2)
[2020-10-19 10:34] LABS: CREATININE 0.8 mg/dL (0.55-1.3)
[2020-10-19] MEDS: PRENATAL VITAMINS W/ FOLIC ACID TABLET (FP) PO SCH (11:00)
[2020-10-19] MEDS: hydrOXYzine PAMOATE 25 MG CAPSULE (FP) PO PRN (11:01)
[2020-10-19] MEDS: NICOTINE 21 MG/24 HOURS TOPICAL PATCH TD SCH (11:05)
[2020-10-19] MEDS: THIAMINE HCL 100 MG TABLET (FP) PO SCH (22:31)
[2020-10-19] MEDS: MELATONIN 5 MG TABLETS PO SCH (22:31)
[2020-10-20] MEDS: hydrOXYzine PAMOATE 25 MG CAPSULE (FP) PO PRN ×2 (01:55→12:16)
[2020-10-20] MEDS: LORazepam 1 MG TABLET PO PRN (01:56)
[2020-10-20] MEDS: LORazepam 1 MG TABLET PO SCH ×2 (06:58→10:53)
[2020-10-20] MEDS ORDERED: methaDONE HCL 10 MG TABLET (FOR DETOX USE ONLY) PO ONE (10:00)
[2020-10-20] MEDS: NICOTINE 21 MG/24 HOURS TOPICAL PATCH TD SCH (10:52)
[2020-10-20] MEDS: PRENATAL VITAMINS W/ FOLIC ACID TABLET (FP) PO SCH (10:52)
[2020-10-20] MEDS: METHOCARBAMOL 500 MG TABLET PO PRN (10:52)
[2020-10-20 13:08] VITALS: BP 98/72; PULSE 100; TEMP 96.9
[2020-10-21] MEDS ORDERED: LORazepam 0.5 MG TABLET PO PRN
[2020-10-21] MEDS ORDERED: LORazepam 0.5 MG TABLET PO SCH (05:00)
[2020-10-22] MEDS ORDERED: LORazepam 0.5 MG TABLET PO ONE (05:00)
[2020-10-22] MEDS ORDERED: methaDONE HCL 10 MG TABLET (FOR DETOX USE ONLY) PO ONE (10:00)
== END 2020-10-20 15:54 | disposition left against medical advice (07) | DRG 770 ==
LOC: YASAS 13:06 → Y3N 14:34
PROVIDERS: ADMIT Allergy & Immunology; ATTEND Allergy & Immunology
PROC: HZ2ZZZZ Detoxification Services for Substance Abuse Treatment (ICD-10-PCS; principal; 2020-10-18)
DX: F11.23 Opioid dependence with withdrawal (principal); F10.230 Alcohol dependence with withdrawal, uncomplicated; F14.10 Cocaine abuse, uncomplicated; F17.210 Nicotine dependence, cigarettes, uncomplicated; Z59.0 Homelessness
CPT/HCPCS: 36415; 80053; 85027; 86780; C9803; U0003; U0005

== ENCOUNTER 2020-12-17 10:42 | Inpatient (IN) | payer OTHER ==
[2020-12-17 10:57] VITALS: BMI 21.1
[2020-12-17] MEDS ORDERED: ACETAMINOPHEN 325 MG TABLET (FP) PO PRN ×2 (11:24)
[2020-12-17] MEDS ORDERED: NICOTINE 10 MG CARTRIDGE (INHALER) IH PRN (11:24)
[2020-12-17] MEDS ORDERED: IBUPROFEN 400 MG TABLET (FP) PO PRN (11:24)
[2020-12-17] MEDS ORDERED: cloNIDine HCL 0.1 MG TABLET PO PRN (11:24)
[2020-12-17] MEDS ORDERED: ONDANSETRON *ODT* 4 MG TABLET SL PRN (11:24)
[2020-12-17] MEDS ORDERED: MENTHOL/PHENOL 1 EACH UD MM PRN (11:24)
[2020-12-17] MEDS ORDERED: diazePAM 5 MG TABLET PO PRN (11:24)
[2020-12-17] MEDS ORDERED: clonazePAM 0.5 MG ODT TABLETS SL PRN (11:24)
[2020-12-17] MEDS ORDERED: BISMUTH SUBSALICYLATE 524 MG/30 ML PO PRN (11:24)
[2020-12-17] MEDS ORDERED: METHOCARBAMOL 500 MG TABLET PO PRN (11:24)
[2020-12-17] MEDS ORDERED: MAG HYDROX/AL HYDROX/SIMETH 30 ML UNIT-DOSE CUP PO PRN (11:24)
[2020-12-17] MEDS ORDERED: MAGNESIUM HYDROX 2400MG/30ML ORAL SUSPENSION 30 ML CUP PO PRN (11:24)
[2020-12-17] MEDS ORDERED: MAGNESIUM CITRATE 300 ML BOTTLE PO PRN (11:24)
[2020-12-17] MEDS ORDERED: diazePAM 5 MG TABLET ONE (11:52)
[2020-12-17] MEDS ORDERED: methaDONE HCL 10 MG TABLET (FOR DETOX USE ONLY) ONE (11:52)
[2020-12-17] MEDS: diazePAM 5 MG TABLET PO SCH ×3 (11:55→22:11)
[2020-12-17] MEDS: methaDONE HCL 10 MG TABLET (FOR DETOX USE ONLY) PO ONE ×2 (11:55→12:38)
[2020-12-17] MEDS: PRENATAL VITAMINS W/ FOLIC ACID TABLET (FP) PO SCH (12:19)
[2020-12-17] MEDS: NICOTINE 7 MG/24 HOURS TOPICAL PATCH TD SCH (12:19)
[2020-12-17] MEDS: hydrOXYzine PAMOATE 25 MG CAPSULE (FP) PO SCH ×3 (13:20→22:11)
[2020-12-17 13:30] LABS: HEMATOCRIT 40.1 % (35.4-49); HEMOGLOBIN 13.4 GM/dL (11.7-16.9); MCH 31.1 pg (25.7-33.7); MCHC 33.4 g/dl (32.0-35.9); MEAN CELL VOLUME 93.2 fl (80-96); MEAN PLT VOLUME 8.5 fl (7.5-11.1); PLATELET COUNT 297 10^3/uL (134-434); RBC 4.31 M/mm3 (4.00-5.60); RDW 14.2 % (11.9-15.9); WHITE BLOOD COUNT 8.9 K/mm3 (4.0-10.0)
[2020-12-17 13:37] LABS: ALBUMIN 3.5 g/dl (3.4-5.0); BLOOD UREA NITROGEN 13.7 mg/dL (7-18); CALCIUM 9.1 mg/dL (8.5-10.1)
[2020-12-17 13:40] LABS: CREATININE 0.7 mg/dL (0.55-1.3)
[2020-12-17 13:42] LABS: TOT PROT 7.6 g/dl (6.4-8.2)
[2020-12-17 13:43] LABS: BILIRUBIN,TOTAL 0.7 mg/dL (0.2-1)
[2020-12-17] MEDS ORDERED: THIAMINE HCL 100 MG TABLET (FP) PO SCH (22:00)
[2020-12-17] MEDS ORDERED: MELATONIN 5 MG TABLETS PO SCH (22:00)
[2020-12-18] MEDS: hydrOXYzine PAMOATE 25 MG CAPSULE (FP) PO SCH ×2 (05:24→10:06)
[2020-12-18] MEDS: diazePAM 5 MG TABLET PO SCH ×2 (05:24→10:04)
[2020-12-18] MEDS ORDERED: methaDONE HCL 10 MG TABLET (FOR DETOX USE ONLY) ONE (09:15)
[2020-12-18] MEDS: PRENATAL VITAMINS W/ FOLIC ACID TABLET (FP) PO SCH (10:03)
[2020-12-18] MEDS: NICOTINE 7 MG/24 HOURS TOPICAL PATCH TD SCH (10:04)
[2020-12-18] MEDS ORDERED: hydrOXYzine PAMOATE 25 MG CAPSULE (FP) PO PRN (10:30)
[2020-12-18] MEDS ORDERED: MELATONIN 5 MG TABLETS PO SCH (10:36)
[2020-12-18] MEDS ORDERED: METHOCARBAMOL 750 MG TAB PO ONE (11:00)
[2020-12-18] MEDS ORDERED: ACETAMINOPHEN 325 MG TABLET (FP) PO ONE (11:00)
[2020-12-18 13:32] VITALS: BP 121/58; PULSE 85; TEMP 98.7
[2020-12-19] MEDS ORDERED: diazePAM 5 MG TABLET PO SCH (06:00)
[2020-12-19] MEDS ORDERED: methaDONE HCL 10 MG TABLET (FOR DETOX USE ONLY) PO ONE (10:00)
[2020-12-20] MEDS ORDERED: diazePAM 5 MG TABLET PO SCH (06:00)
[2020-12-21] MEDS ORDERED: diazePAM 5 MG TABLET PO ONE (06:00)
[2020-12-21] MEDS ORDERED: methaDONE HCL 10 MG TABLET (FOR DETOX USE ONLY) PO ONE (10:00)
== END 2020-12-18 14:32 | disposition left against medical advice (07) | DRG 770 ==
LOC: YASAS 10:42 → Y6N 11:41
PROVIDERS: ADMIT Allergy & Immunology; ATTEND Allergy & Immunology
PROC: HZ2ZZZZ Detoxification Services for Substance Abuse Treatment (ICD-10-PCS; principal; 2020-12-17)
DX: F11.23 Opioid dependence with withdrawal (principal); F10.230 Alcohol dependence with withdrawal, uncomplicated; F14.20 Cocaine dependence, uncomplicated; F17.210 Nicotine dependence, cigarettes, uncomplicated; F41.9 Anxiety disorder, unspecified; Z59.0 Homelessness
CPT/HCPCS: 36415; 80053; 85027; 86780; C9803; U0003; U0005

== ENCOUNTER 2021-05-08 20:12 | Inpatient (IN) | payer OTHER ==
[2021-05-08] MEDS ORDERED: IBUPROFEN 400 MG TABLET (FP) PO PRN (22:41)
[2021-05-08] MEDS ORDERED: BISMUTH SUBSALICYLATE 524 MG/30 ML PO PRN (22:41)
[2021-05-08] MEDS ORDERED: MENTHOL/PHENOL 1 EACH UD MM PRN (22:41)
[2021-05-08] MEDS ORDERED: ACETAMINOPHEN 325 MG TABLET (FP) PO PRN ×2 (22:41)
[2021-05-08] MEDS ORDERED: ONDANSETRON *ODT* 4 MG TABLET SL PRN (22:41)
[2021-05-08] MEDS ORDERED: MAGNESIUM HYDROX 2400MG/30ML ORAL SUSPENSION 30 ML CUP PO PRN (22:41)
[2021-05-08] MEDS ORDERED: MAG HYDROX/AL HYDROX/SIMETH 30 ML UNIT-DOSE CUP PO PRN (22:41)
[2021-05-08] MEDS ORDERED: LOPERAMIDE HCL 2 MG CAPSULE PO PRN (22:41)
[2021-05-08] MEDS ORDERED: MAGNESIUM CITRATE 300 ML BOTTLE PO PRN (22:41)
[2021-05-08] MEDS ORDERED: cloNIDine HCL 0.1 MG TABLET PO PRN (22:41)
[2021-05-08] MEDS ORDERED: NICOTINE POLACRILEX 2 MG GUM BUC PRN (22:41)
[2021-05-08] MEDS ORDERED: methaDONE HCL 10 MG TABLET (FOR DETOX USE ONLY) PO ONE (22:41)
[2021-05-09] MEDS: chlordiazePOXIDE HCL 25 MG CAPSULE PO SCH ×4 (03:18→18:00)
[2021-05-09] MEDS ORDERED: methaDONE HCL 40 MG DISPERSABLE TABLET PO ONE (03:20)
[2021-05-09 03:21] VITALS: BMI 22.4
[2021-05-09] MEDS ORDERED: chlordiazePOXIDE HCL 25 MG CAPSULE ONE ×3 (03:38→11:01)
[2021-05-09] MEDS ORDERED: methaDONE HCL 10 MG TABLET (FOR DETOX USE ONLY) ONE ×2 (03:39→11:01)
[2021-05-09] MEDS: chlordiazePOXIDE HCL 25 MG CAPSULE PO PRN ×2 (03:44→13:19)
[2021-05-09] MEDS ORDERED: METHOCARBAMOL 500 MG TABLET ONE (06:09)
[2021-05-09] MEDS: METHOCARBAMOL 500 MG TABLET PO PRN ×2 (06:20→13:21)
[2021-05-09] MEDS ORDERED: PRENATAL VITAMINS W/ FOLIC ACID TABLET (FP) PO SCH (10:00)
[2021-05-09] MEDS ORDERED: NICOTINE 21 MG/24 HOURS TOPICAL PATCH TD SCH (10:00)
[2021-05-09 12:13] LABS: HEMATOCRIT 39.3 % (35.4-49); HEMOGLOBIN 12.6 GM/dL (11.7-16.9); MCH 28.9 pg (25.7-33.7); MCHC 31.9 g/dl (32.0-35.9); MEAN CELL VOLUME 90.4 fl (80-96); PLATELET COUNT 269 10^3/uL (134-434); RBC 4.35 M/mm3 (4.00-5.60); RDW 15.9 % (11.9-15.9); WHITE BLOOD COUNT 6.4 K/mm3 (4.0-10.0)
[2021-05-09 13:57] LABS: ALBUMIN 3.6 g/dl (3.4-5.0); BLOOD UREA NITROGEN 14.7 mg/dL (7-18); CALCIUM 9.6 mg/dL (8.5-10.1)
[2021-05-09 14:00] LABS: CREATININE 0.9 mg/dL (0.55-1.3)
[2021-05-09 14:02] LABS: BILIRUBIN,TOTAL 0.5 mg/dL (0.2-1); TOT PROT 7.5 g/dl (6.4-8.2)
[2021-05-09 17:48] VITALS: BP 106/63; PULSE 75; TEMP 98
[2021-05-09] MEDS ORDERED: MIRTAZAPINE 15 MG TABLET (FP) PO SCH (22:00)
[2021-05-09] MEDS ORDERED: MELATONIN 5 MG TABLETS PO SCH (22:00)
[2021-05-09] MEDS ORDERED: THIAMINE HCL 100 MG TABLET (FP) PO SCH (22:00)
[2021-05-10] MEDS ORDERED: chlordiazePOXIDE HCL 25 MG CAPSULE PO SCH (05:00)
[2021-05-10] MEDS ORDERED: methaDONE HCL 10 MG TABLET (FOR DETOX USE ONLY) PO ONE (10:00)
[2021-05-11] MEDS ORDERED: chlordiazePOXIDE HCL 10 MG CAPSULE PO PRN
[2021-05-11] MEDS ORDERED: chlordiazePOXIDE HCL 10 MG CAPSULE PO SCH (05:00)
[2021-05-12] MEDS ORDERED: chlordiazePOXIDE HCL 10 MG CAPSULE PO SCH (05:00)
[2021-05-12] MEDS ORDERED: methaDONE HCL 10 MG TABLET (FOR DETOX USE ONLY) PO ONE (10:00)
[2021-05-13] MEDS ORDERED: chlordiazePOXIDE HCL 10 MG CAPSULE PO ONE (05:00)
== END 2021-05-09 20:30 | disposition left against medical advice (07) | DRG 770 ==
LOC: YASAS 20:12 → Y6N 05-09 12:36
PROVIDERS: ADMIT Allergy & Immunology; ATTEND Allergy & Immunology
PROC: HZ2ZZZZ Detoxification Services for Substance Abuse Treatment (ICD-10-PCS; principal; 2021-05-09)
DX: F10.230 Alcohol dependence with withdrawal, uncomplicated (principal); F11.20 Opioid dependence, uncomplicated; F14.20 Cocaine dependence, uncomplicated; F17.210 Nicotine dependence, cigarettes, uncomplicated; F19.280 Other psychoactive substance dependence with psychoactive substance-induced anxiety disorder; F19.282 Other psychoactive substance dependence with psychoactive substance-induced sleep disorder; J45.909 Unspecified asthma, uncomplicated
CPT/HCPCS: 36415; 80053; 85027; 86780; 93005; 93010; C9803; U0003; U0005

== ENCOUNTER 2022-09-18 14:36 | Emergency (ER) | payer OTHER ==
[2022-09-18 14:42] VITALS: BP 129/67; PULSE 75; RESP 18; TEMP 98.2; BMI 27.4
[2022-09-18] MEDS ORDERED: MAG HYDROX/AL HYDROX/SIMETH 30 ML UNIT-DOSE CUP PO ONE (15:38)
[2022-09-18] MEDS ORDERED: METOCLOPRAMIDE HCL INJECTION 10 MG/2 ML VIAL IVPB ONE (15:38)
[2022-09-18] MEDS ORDERED: FAMOTIDINE 20 MG/50 ML IVPB 20 MG/50 ML MG IVPB ONE ×2 (15:38→16:00)
[2022-09-18] MEDS ORDERED: SODIUM CHLORIDE 0.9% 500 ML INFUS.BAG IV ONE (15:38)
[2022-09-18] MEDS ORDERED: METOCLOPRAMIDE HCL INJECTION 10 MG/2 ML VIAL ONE (16:00)
[2022-09-18] MEDS ORDERED: MAG HYDROX/AL HYDROX/SIMETH 30 ML UNIT-DOSE CUP ONE (16:00)
[2022-09-18 16:39] LABS: BASO % 0.6 % (0-2.0); EOS % 2.3 % (0-4.5); HEMATOCRIT 40.5 % (35.4-49); HEMOGLOBIN 13.9 GM/dL (11.7-16.9); LYMPH % 20.7 % (8-40); MCH 31.4 pg (25.7-33.7); MCHC 34.4 g/dl (32.0-35.9); MEAN CELL VOLUME 91.2 fl (80-96); MEAN PLT VOLUME 10.5 fl (7.5-11.1); MONO % 7.9 % (3.8-10.2); NEUT % 68.5 % (42.8-82.8); PLATELET COUNT 158 10^3/uL (134-434); RBC 4.43 M/mm3 (4.00-5.60); RDW 14.5 % (11.9-15.9); WHITE BLOOD COUNT 8.1 K/mm3 (4.0-10.0)
[2022-09-18 17:01] LABS: POTASSIUM 3.7 mmol/L (3.5-5.1)
[2022-09-18 17:05] LABS: ALBUMIN 4.2 g/dl (3.4-5.0); BLOOD UREA NITROGEN 11.6 mg/dL (7-18); CALCIUM 9.4 mg/dL (8.5-10.1)
[2022-09-18 17:07] LABS: CREATININE 0.7 mg/dL (0.55-1.3)
[2022-09-18 17:09] LABS: BILIRUBIN,TOTAL 1.4 mg/dL (0.2-1); TOT PROT 7.1 g/dl (6.4-8.2)
[2022-09-18] MEDS ORDERED: ACETAMINOPHEN 1000 MG/100 ML BAG IVPB ONE (18:11)
[2022-09-18] MEDS ORDERED: ONDANSETRON 4 MG/2 ML VIAL IVPUSH ONE (18:13)
[2022-09-18] MEDS ORDERED: ACETAMINOPHEN INJECTION 100 ML IVPB ONE (18:24)
[2022-09-18] MEDS ORDERED: ONDANSETRON 4 MG/2 ML VIAL ONE (18:24)
[2022-09-18] MEDS ORDERED: MAGNESIUM 1GM/D5W - 1 GM/100 ML IVPB IVPB ONE (18:24)
== END 2022-09-18 21:15 | disposition home or self-care (01) ==
LOC: JER 14:36
PROC: 3E033GC Introduction of Other Therapeutic Substance into Peripheral Vein, Percutaneous Approach (ICD-10-PCS; principal; 2022-09-18)
PROC: 3E033GC Introduction of Other Therapeutic Substance into Peripheral Vein, Percutaneous Approach (ICD-10-PCS; 2022-09-18)
PROC: 3E033NZ Introduction of Analgesics, Hypnotics, Sedatives into Peripheral Vein, Percutaneous Approach (ICD-10-PCS; 2022-09-18)
PROC: 3E033GC Introduction of Other Therapeutic Substance into Peripheral Vein, Percutaneous Approach (ICD-10-PCS; 2022-09-18)
PROC: 3E033GC Introduction of Other Therapeutic Substance into Peripheral Vein, Percutaneous Approach (ICD-10-PCS; 2022-09-18)
DX: R51.9 Headache, unspecified (principal); R11.2 Nausea with vomiting, unspecified; R10.13 Epigastric pain
CPT/HCPCS: 36415; 70450-TC; 76705-TC; 80053; 83690; 85025; 93005; 93010; 99285-25

== ENCOUNTER 2023-02-25 15:36 | Emergency (ER) | payer OTHER ==
[2023-02-25 15:53] VITALS: BP 117/66; PULSE 70; RESP 18; TEMP 98.2; BMI 25.6
== END 2023-02-25 18:00 | disposition left against medical advice (07) ==
LOC: JERFT 15:36
DX: Z53.9 Procedure and treatment not carried out, unspecified reason (principal)
CPT/HCPCS: 99281-25